=== PATIENT | male | born 1955 | race Caucasian/White ===

== ENCOUNTER 2019-12-14 10:18 | Outpatient (CLI) | payer BC, SELFPAY ==
[2019-12-14 11:36] LABS: Alanine Aminotransferase 70 U/L (4-50); Albumin Level 4.6 g/dL (3.5-5.1); Alkaline Phosphatase 62 U/L (38-126); Aspartate Amino Transferase 45 U/L (17-59); Bilirubin,Total 0.6 mg/dL (0.2-1.3); Blood Urea Nitrogen 13 mg/dL (9-20); Calcium 9.2 mg/dL (8.4-10.2); Carbon Dioxide 25 mmol/L (22-30); Chloride 106 mmol/L (98-107); Cholesterol 153 mg/dL (0-200); Estimated Glomerular Filt Rate > 60; Glucose 97 mg/dL (75-110); HDL Direct 28 mg/dL; Sodium 138 mmol/L (137-145); Triglycerides 102 mg/dL (<150)
[2019-12-14 11:48] LABS: LDL Cholesterol Direct 108 mg/dL
== END 2019-12-14 10:19 | disposition home or self-care (01) ==
LOC: ANHLAB 10:21
PROVIDERS: PCP Emergency Medicine; Visit Provider Emergency Medicine
DX: E78.5 Hyperlipidemia, unspecified (principal)
CPT/HCPCS: 36415; 80053; 80061

== ENCOUNTER 2020-01-02 06:40 | Emergency (ER) | payer BC, SELFPAY ==
--- NOTE | ~2020-01-02 | CT_ITS ---
EXAMINATION: CT abdomen pelvis w con DATE: 01/02/2020 09:05 INDICATION: Right flank pain TECHNIQUE: Computed tomography (CT) of the abdomen and pelvis was performed with 100 mL Omnipaque-350 intravenous contrast. Automated exposure control and iterative reconstruction technique were employe d. The dose-length product was 1358.03 mGy-cm. COMPARISON: 07/25/2014 FINDINGS: Lung bases are clear. Heart size is normal. Atherosclerotic coronary artery calcification. No pericar dial or pleural effusion. Diffuse hepatic steatosis with focal sparing along the gallbladder fossa. G allbladder, spleen, pancreas and bilateral adrenal glands are normal. Small region of cortical scarri ng at the upper pole of the right kidney. Bilateral renal cysts measuring up to 3.7 cm in the There i s mild colonic diverticulosis with a sigmoid predominance. There is no adjacent inflammatory change to suggest diverticulitis. No bowel obstruction. The appendix is not visualized. No pericecal inflamm atory change to suggest acute appendicitis. Bladder is normal. Prostatomegaly. No free intraperitonea l gas or fluid. No pathologically enlarged abdominal or pelvic lymphadenopathy. Postoperative changes of prior umbilical hernia repair. Chronic mild T12 compression fracture. IMPRESSION: 1. No acute intra-abdominal/pelvic process. 2. Diffuse hepatic steatosis. 3. Mild scattered diverticulosis. 4. Prostatomegaly. Reviewed, dictated and finalized at location A.
[2020-01-02 06:48] VITALS: BP 158/103; PULSE 71; RESP 20; TEMP 36.8; O2SAT 98
[2020-01-02 07:36] LABS: Basophils Absolute Auto 0.1 K/mm3 (0.0-0.1); Basophils Percent Auto 1.1 % (0.2-1.2); Eosinophils Absolute Auto 0.3 K/mm3 (0-0.3); Eosinophils Percent Auto 3.4 % (0-4.4); Hematocrit 41.2 % (42.0-52.0); Hemoglobin 14.7 g/dL (14.0-18.0); Immature Granulocyte Absolute 0.07 K/mm3 (0.00-0.031); Immature Granulocyte Percent A 0.9 % (0-0.5); Lymphocytes Absolute Auto 2.14 K/mm3 (0.9-3.2); Lymphocytes Percent Auto 27.1 % (18.3-44.2); Mean Corpuscular HGB Conc 35.7 g/dl (32-36); Mean Corpuscular Hemoglobin 30.9 pg (26-34); Mean Corpuscular Volume 86.6 fl (80-100); Mean Platelet Volume 9.3 fl (7.4-10.4); Monocytes Absolute Auto 0.5 K/mm3 (0.1-0.6); Monocytes Percent Auto 5.7 % (2.6-8.5); Neutrophils Absolute Auto 4.9 K/mm3 (1.3-6.7); Neutrophils Percent Auto 61.8 % (45.5-73.1); Platelet Count Result 213 k/mm3 (150-375); Red Blood Count 4.76 M/mm3 (4.6-6.20); Red Cell Distribution Width 13.2 % (11.5-14.5); White Blood Count 7.9 K/mm3 (4.5-10.0)
[2020-01-02 07:38] LABS: Add Urine Microscopic? NO; Appearance Urine Clear (Clear); Bilirubin Urine Negative (Negative); Blood Urine Negative (Negative); Color Urine Yellow (Yellow); Glucose Urine UA Negative (Negative); Ketones Urine Negative (Negative); Leukocyte Esterase Ur Negative LEU/UL (Negative); Nitrate Urine Negative (Negative); Protein Urine Negative (Negative); Specific Grav Ur 1.013 (1.001-1.035); Urobilinogen Urine Negative mg/dL (<2.0)
--- NOTE | 2020-01-02 07:44 | ED.ABDPAIN ---
HPI - Abdominal Pain General Chief Complaint: Abdominal Pain Stated Complaint: Extreme kidney pain Time Seen by Provider: 01/02/20 07:37 History of Present Illness HPI narrative: Patient presents to the ER for 3 days of right flank pain. Started 3 days ago in the morning without injury. Hurts beneath his posterior ribs. Worse with movement. Stops when he is at complete rest. He thought it might just be a pulled muscle. He called his doctor yesterday who said go to the ER and get a CAT scan. So he is here this morning. He says the pain is a 2 out of 10 and he does not want any pain medicine. He has had difficulty urinating for the last 3 or 4 months. He has difficulty starting the stream. And he urinates less than usual. He has not had any dysuria or hematuria. He does not have a history of prostate problems. He does not have hypertension but has been told that he has borderline diabetes. Past surgeries include pyloric stenosis repair, appendectomy, ventral hernia with graft, cervical laminectomy, cervical fusion. 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 MD elicited complaint: flank pain Pertinent past history: none Onset (ago): day(s) Pain Consistency: intermittent Location: R flank Severity: mild Related Data Allergies Allergy/AdvReac Type Severity Reaction Status Date / Time No Known Allergies Allergy Verified 01/02/20 06:51 Review of Systems Review of Systems: Narrative: CONSTITUTIONAL: Denies fever, chills, or sweats. EYES: Denies visual changes, redness, or discharge. ENT: Denies rhinorrhea, congestion, sore throat, or otalgia. CARDIOVASCULAR: Denies chest pain, palpitations, or edema. RESPIRATORY: Denies cough or dyspnea. GASTROINTESTINAL: Denies abdominal pain, nausea, vomiting, or diarrhea. GENITOURINARY: Denies dysuria or hematuria. SKIN: Denies rash or itching. MUSCULOSKELETAL: Denies back pain, joint pain, or myalgia. NEUROLOGIC: Denies headache, numbness, or weakness. PSYCHIATRIC: Denies anxiety or depression. [facility] Surgical History Surgical History History of appendectomy History of cervical spinal arthrodesis History of repair of pyloric stenosis History of ventral hernia repair Social History Social History (Updated 01/02/20 @ 07:47 by Mar Matthews MD) Smoking status: Never smoker Alcohol intake: never Substance use: never Exam Narrative: Exam Narrative: GENERAL: Well-appearing, well-nourished, and in no acute distress. HEAD: Normocephalic, atraumatic. EYES: PERRLA and EOMI. ENT: Nares clear, no rhinorrhea or epistaxis. Mucous membranes moist. NECK: Supple. CHEST: Clear to auscultation. No respiratory distress. Gynecomastia. HEART: Regular rate and rhythm. No murmur heard. Normal peripheral pulses. ABDOMEN: Soft, nontender, nondistended, normal active bowel sounds. EXTREMITIES: Normal range of motion. No edema. SKIN: Warm, dry, no rash. NEURO: No focal deficits. Alert and oriented x3. PSYCH: Normal mood and affect. Back: Tenderness beneath the right posterior ribs. No point tenderness on the spine. Course Reevaluation(s) Reevaluation #1: Went in to discuss the findings of the CAT scan with the patient. Summarized it as fatty liver, for which he needs a low-fat diet and to get his cholesterol checked. No kidney stone. Enlarged prostate for which he needs a urologist. I will also give him some muscle relaxers and pain pills for the probable muscle strain. Date: 01/02/20 Time: 09:30 Vital Signs Vital signs: Vital Signs Temperature 98.2 F 01/02/20 06:48 Pulse Rate 71 01/02/20 06:48 Respiratory Rate 01/02/20 06:48 Blood Pressure 158/103 H 01/02/20 06:48 Pulse Oximetry 98 01/02/20 06:48 Temperature 98.2 F 01/02/20 06:48 Pulse Rate 71 01/02/20 06:48 Respiratory Rate 20 01/02/20 06:48 Blood Pressure 158/103 H 01/02/20 06:48 Pulse Oximetry 98
[2020-01-02 07:47] LABS: Blood Urea Nitrogen 15 mg/dL (9-20); Calcium 9.2 mg/dL (8.4-10.2); Carbon Dioxide 23 mmol/L (22-30); Chloride 107 mmol/L (98-107); Estimated CRCL calculation 105 ml/min; Estimated Glomerular Filt Rate > 60; Glucose 108 mg/dL (75-110); Potassium 4.2 mmol/L (3.4-5.0); Sodium 138 mmol/L (137-145)
== END 2020-01-02 09:44 | disposition home or self-care (01) ==
PROVIDERS: Emergency Provider Emergency Medicine; PCP Emergency Medicine
DX: K76.0 Fatty (change of) liver, not elsewhere classified (principal); K57.90 Diverticulosis of intestine, part unspecified, without perforation or abscess without bleeding; N40.0 Benign prostatic hyperplasia without lower urinary tract symptoms; S39.011A Strain of muscle, fascia and tendon of abdomen, initial encounter; R73.03 Prediabetes; Z98.1 Arthrodesis status; X58.XXXA Exposure to other specified factors, initial encounter
CPT/HCPCS: 36415; 74177; 80048; 81003; 85025; 99284; Q9967

== ENCOUNTER 2020-02-06 22:25 | Emergency (ER) | payer BC, SELFPAY ==
--- NOTE | ~2020-02-06 | XR_ITS ---
EXAMINATION: XR chest 2V EXAM DATE: 02/06/2020 23:27 INDICATION: Midline chest pain. TECHNIQUE: Frontal and lateral projections of the chest obtained and reviewed. There is no prior gypsy dy for comparison. FINDINGS: The lungs are clear. There are no pleural effusions. The cardiomediastinal silhouette is within normal limits. There is no pneumothorax suspected. The bones and soft tissues are unremarkab le. Lower cervical fusion. IMPRESSION: No acute cardiopulmonary findings. Reviewed, dictated and finalized at location A.
[2020-02-06 22:29] VITALS: BP 176/98; PULSE 61; RESP 18; TEMP 36.6; O2SAT 98
--- NOTE | 2020-02-06 22:40 | ECG_ITS ---
Measurements Intervals [place] Rate: 72 P: 46 MT: 156 QRS: 10 QRSD: 90 T: 52 QT: 362 QTc: 398 Interpretive Statements SINUS RHYTHM WITH SINUS ARRHYTHMIA ATRIAL PREMATURE COMPLEX AND FREQUENT VENTRICULAR PREMATURE COMPLEXES BASELINE WANDER- II, III ABNORMAL ECG Electronically Signed On 02-07-2020 7:16:42 CDT by Earl Eckert D.O.
--- NOTE | 2020-02-06 22:43 | ED.CHESTPAIN ---
HPI - Chest Pain General Chief Complaint: Chest Pain Stated Complaint: chest pain History of Present Illness HPI narrative: He had a few very breif sharp, shooting pains in his chest this evening. He has also noted increasing palpiations recently. During these he feels like his heart will slow down, speed up, and pause. He has not seen anybody about this. Related Data Home Medications Medication Instructions Recorded Confirmed albuterol sulfate 90 mcg/actuation 2 puff INHALATION Q4-6H PRN gm 12/18/19 aerosol inhaler meloxicam 02/06/20 methocarbamol mg 02/06/20 Allergies Allergy/AdvReac Type Severity Reaction Status Date / Time No Known Allergies Allergy Unverified 11/25/17 08:38 Review of Systems Review of Systems: All systems reviewed & are unremarkable except as noted in HPI and below Constitutional: Constitutional: Denies fever(s) Cardiovascular: Cardiovascular: Reports chest pain and Denies radiating jaw, neck or arm pain Respiratory: Respiratory: Denies dyspnea Gastrointestinal: Gastrointestinal: Denies nausea Musculoskeletal: Musculoskeletal: Denies back pain [facility]LY [facility] Past Medical History Medical History Seborrheic keratosis Family History Family History Father Family history of lung cancer, Onset Age: 61 Family history of heart disease in male family member before age 55, Onset Age: 61 Mother Family history of malignant neoplasm of breast in first degree relative, Onset Age: 66 Social History Social History Smoking status: Never smoker Second hand tobacco smoke exposure: No Gender identity (if verbalized by the patient): Male Exam Const: General: healthy appearing, no acute distress and alert Orientation/consciousness: patient oriented x3 HENMT: Head: normal to inspection Chest: Chest palpation & inspection: normal inspection of the chest and no tenderness Resp: Effort & Inspection: normal respiratory effort Auscultation: clear to auscultation bilaterally, no rales, no rhonchi and no wheezes Cardio: Jugular venous distension: no JVD Rate: regular rate Rhythm: regular rhythm Heart sounds: no murmurs GI: Inspection: non-distended GI Palp: Yes Soft to palpation and No Tenderness to palpation present (GI) Skin: General skin exam: normal color Neuro: General: patient oriented x3 and moves all extremities Speech: normal speech Extrem: General: no edema Psych: Appearance: well kempt Affect: normal affect Course Vital Signs Vital signs: Vital Signs Temperature 36.6 C 02/06/20 22:29 Pulse Rate 61 02/06/20 22:29 Respiratory Rate 18 02/06/20 22:29 Blood Pressure 176/98 H 02/06/20 22:29 Pulse Oximetry 98 02/06/20 22:29 Temperature 36.6 C 02/06/20 22:29 Pulse Rate 59 L 02/07/20 02:42 Respiratory Rate 16 02/07/20 02:42 Blood Pressure 140/83 02/07/20 02:42 Pulse Oximetry 97 02/07/20 02:42 MDM - Chest Pain MDM Narrative Medical decision making narrative: Chest pain is atypical. Occasional PVC's on EKG and telemetry. Troponin negative x2. Medical Records Data Attestation: I reviewed the patient's medical records. Lab Data Attestation: I reviewed the patient's lab results. Result diagrams: 02/06/20 22:46 02/06/20 22:46 Labs: Lab Results 02/06/20 02/06/20 02/06/20 Range/Units 22:46 22:46 22:46 WBC 10.3 H (4.5-10.0) K/mm3 RBC 4.81 (4.6-6.20) M/mm3 Hgb 14.9 (14.0-18.0) g/dL Hct 42.3 (42.0-52.0) % MCV 87.9 (80-100) fl MCH 31.0 (26-34) pg MCHC 35.2 (32-36) g/dl RDW 13.5 (11.5-14.5) % Plt Count 230 (150-375) k/mm3 MPV 9.5 (7.4-10.4) fl Immature Gran % (Auto) 0.3 (0-0.5) % Neut % (Auto) 52.5 (45.5-73.1) % Lymph % (Auto) 36.1 (18.3-44.2) %
[2020-02-06 22:53] LABS: Basophils Absolute Auto 0.1 K/mm3 (0.0-0.1); Basophils Percent Auto 0.9 % (0.2-1.2); Eosinophils Absolute Auto 0.3 K/mm3 (0-0.3); Eosinophils Percent Auto 3.2 % (0-4.4); Hematocrit 42.3 % (42.0-52.0); Hemoglobin 14.9 g/dL (14.0-18.0); Immature Granulocyte Absolute 0.03 K/mm3 (0.00-0.031); Immature Granulocyte Percent A 0.3 % (0-0.5); Lymphocytes Absolute Auto 3.71 K/mm3 (0.9-3.2); Lymphocytes Percent Auto 36.1 % (18.3-44.2); Mean Corpuscular HGB Conc 35.2 g/dl (32-36); Mean Corpuscular Volume 87.9 fl (80-100); Mean Platelet Volume 9.5 fl (7.4-10.4); Monocytes Absolute Auto 0.7 K/mm3 (0.1-0.6); Neutrophils Absolute Auto 5.4 K/mm3 (1.3-6.7); Neutrophils Percent Auto 52.5 % (45.5-73.1); Platelet Count Result 230 k/mm3 (150-375); Red Blood Count 4.81 M/mm3 (4.6-6.20); Red Cell Distribution Width 13.5 % (11.5-14.5); White Blood Count 10.3 K/mm3 (4.5-10.0)
[2020-02-06 23:05] LABS: INR 0.9
[2020-02-06 23:06] LABS: Partial Thromboplastin Time 30.9 SECONDS (22.3-36.8)
[2020-02-06 23:11] LABS: Anion Gap 11 mmol/L (8-16); Blood Urea Nitrogen 19 mg/dL (9-20); Calcium 9.4 mg/dL (8.4-10.2); Carbon Dioxide 24 mmol/L (22-30); Chloride 106 mmol/L (98-107); Estimated CRCL calculation 84 ml/min; Estimated Glomerular Filt Rate > 60; Glucose 104 mg/dL (75-110); Potassium 3.8 mmol/L (3.4-5.0); Sodium 141 mmol/L (137-145)
[2020-02-06 23:23] LABS: Troponin I < 0.012 ng/mL (0.000-0.034)
[2020-02-07 00:30] VITALS: BP 148/87; PULSE 57; RESP 18; O2SAT 97
[2020-02-07 01:56] VITALS: BP 134/70; PULSE 59; RESP 14; O2SAT 97
[2020-02-07 02:17] LABS: Troponin I < 0.012 ng/mL (0.000-0.034)
[2020-02-07 02:42] VITALS: BP 140/83; PULSE 59; RESP 16; O2SAT 97
== END 2020-02-07 02:49 | disposition home or self-care (01) ==
PROVIDERS: Emergency Provider Emergency Medicine; PCP Emergency Medicine
DX: I49.3 Ventricular premature depolarization (principal); R07.9 Chest pain, unspecified; I49.1 Atrial premature depolarization
CPT/HCPCS: 36415; 71046; 80048; 84484; 85025; 85610; 85730; 93005; 99284

== ENCOUNTER 2020-07-12 09:45 | Outpatient (CLI) | payer BC, SELFPAY ==
[2020-07-12 10:23] LABS: Alanine Aminotransferase 59 U/L (4-50); Albumin Level 4.6 g/dL (3.5-5.1); Alkaline Phosphatase 69 U/L (38-126); Anion Gap 9 mmol/L (8-16); Aspartate Amino Transferase 41 U/L (17-59); Bilirubin,Total 0.7 mg/dL (0.2-1.3); Blood Urea Nitrogen 15 mg/dL (9-20); Calcium 9.6 mg/dL (8.4-10.2); Carbon Dioxide 26 mmol/L (22-30); Chloride 105 mmol/L (98-107); Cholesterol 161 mg/dL (0-200); Estimated Glomerular Filt Rate > 60; Glucose 92 mg/dL (75-110); HDL Direct 33 mg/dL; Potassium 4.5 mmol/L (3.4-5.0); Sodium 140 mmol/L (137-145); Triglycerides 143 mg/dL (<150)
[2020-07-12 10:34] LABS: LDL Cholesterol Direct 112 mg/dL
[2020-07-12 10:54] LABS: Prostate Specific Antigen 2.2 ng/mL (< OR = 4.0)
== END 2020-07-12 09:46 | disposition home or self-care (01) ==
PROVIDERS: PCP Emergency Medicine; Visit Provider Emergency Medicine
DX: E78.5 Hyperlipidemia, unspecified (principal); Z12.5 Encounter for screening for malignant neoplasm of prostate
CPT/HCPCS: 36415; 80053; 80061; 84153; G0103

== ENCOUNTER 2021-03-28 13:27 | Outpatient (CLI) | payer BC, SELFPAY ==
--- NOTE | ~2021-03-28 | XR_ITS ---
XR wrist LT min 3V DATE: 03/28/2021 13:50 INDICATION: Left wrist pain. Ultrasound would fracture. TECHNIQUE: 4 views COMPARISON: 12/14/2018 left wrist FINDINGS: Old ununited fracture deformity of the ulnar styloid process. Degenerative change at the radial ulnar and radiocarpal joints, triscaphe and first carpometacarpal j oints, first metacarpophalangeal and first interphalangeal joints, consistent with polyarticular oste oarthritis. No recent fracture or dislocation, periosteal reaction or bone destruction. IMPRESSION: Polyarticular osteoarthritis Old ununited fracture deformity of the ulnar styloid process Reviewed, dictated and finalized at location B.
--- NOTE | ~2021-03-28 | XR_ITS ---
XR chest 2V DATE: 03/28/2021 13:50 INDICATION: Shortness of breath. TECHNIQUE: PA and lateral views COMPARISON: 02/06/2020 PA and lateral chest FINDINGS: Normal heart size. There is aortic calcification and mild unfolding. No hilar or mediastina l enlargement. No pulmonary infiltrate or consolidation, pleural effusion or pulmonary vascular congestion or pneumo thorax is detected. Status post lower anterior cervical spine surgical fusion. There is chronic mild anterior wedge compression fracture deformity of a thoracolumbar vertebra. Mild degenerative spurring of the thoracic spine. Diffuse osteopenia. IMPRESSION: No active cardiopulmonary disease Reviewed, dictated and finalized at location B.
== END 2021-03-28 13:28 | disposition home or self-care (01) ==
PROVIDERS: PCP Emergency Medicine; Visit Provider Emergency Medicine
DX: R06.02 Shortness of breath (principal); S52.612K Displaced fracture of left ulna styloid process, subsequent encounter for closed fracture with nonunion; M19.032 Primary osteoarthritis, left wrist; Z98.1 Arthrodesis status; M85.88 Other specified disorders of bone density and structure, other site
CPT/HCPCS: 71046; 73110

== ENCOUNTER 2021-04-05 13:32 | Outpatient (CLI) | payer BC, SELFPAY ==
--- NOTE | ~2021-04-05 | MR_ITS ---
EXAMINATION: MR cervical spine wo con DATE: 04/05/2021 14:38 INDICATION: Cervical spinal stenosis TECHNIQUE: Magnetic resonance imaging (MRI) of the cervical spine was performed without intravenous c ontrast. Sequences included sagittal T2-weighted FSE, sagittal T2-weighted FS FSE, sagittal T1-weight ed FSE, axial MERGE and axial T2-weighted FSE. COMPARISON: 11/19/2016 FINDINGS: Bone alignment is normal. C5-C7 anterior spinal fusion with discectomies, interbody bone grafting and anterior plate-screw fixation. Unfused vertebral body and disc heights are normal. Bone marrow sign al intensity is normal. Cord signal intensity is normal. Cervical soft tissues are unremarkable. The following disc levels are specifically discussed: C2-C3: The disc does not extend beyond the endplate margin. There is no uncovertebral joint osteoarth ritis. There is moderate right and severe left facet joint osteoarthritis. There is mild left neural foraminal stenosis. There is no central canal stenosis. C3-C4: The disc is minimally bulging. There is no uncovertebral joint osteoarthritis. There is mild r ight and moderate left facet joint osteoarthritis. There is minimal bilateral neural foraminal stenos is. There is no central canal stenosis. C4-C5: Disc is mildly bulging. There is mild right and moderate left uncovertebral joint osteoarthrit is. There is moderate right and severe left facet joint osteoarthritis. There is mild right and moder ate left neural foraminal stenosis. There is no central canal stenosis. C5-C6: Anterior spinal effusion with moderate hypertrophic change at the fused right uncovertebral pushpa int. There is mild left facet joint osteoarthritis. There is mild left neural foraminal stenosis. The re is no central canal stenosis. C6-C7: Anterior spinal fusion. There is mild bilateral facet joint osteoarthritis. There is no neural foraminal stenosis. There is no central canal stenosis. C7-T1: Disc is minimally bulging. There is mild left uncovertebral joint osteoarthritis. There is mil d right and moderate left facet joint osteoarthritis. There is mild left neural foraminal stenosis. T here is no central canal stenosis. IMPRESSION: 1. C5-C7 anterior spinal fusion with plate and screw fixation. 2. No interval change in mild cervical spondylosis. Reviewed, dictated and finalized at location A.
== END 2021-04-05 13:33 | disposition home or self-care (01) ==
LOC: ANHIMG 13:36
PROVIDERS: PCP Emergency Medicine; Visit Provider Emergency Medicine
DX: M48.02 Spinal stenosis, cervical region (principal); Z98.1 Arthrodesis status; M47.892 Other spondylosis, cervical region
CPT/HCPCS: 72141

== ENCOUNTER → 2021-04-24 15:55 | Outpatient (CLI) | payer BC, SELFPAY ==
--- NOTE | ~2021-04-24 | XR_ITS ---
EXAMINATION: XR sacroiliac joints min 3V DATE: 04/24/2021 16:20 INDICATION: Sacroiliac joint pain. TECHNIQUE: 3 views of the sacroiliac joints were obtained. COMPARISON: CT abdomen and pelvis 01/02/2020 FINDINGS: Bone alignment is normal. No fracture. There is mild osteoarthritis of the sacroiliac joint s. IMPRESSION: 1. Mild osteoarthritis of the sacroiliac joints. No evidence of inflammatory arthropathy. Reviewed, dictated and finalized at location A. IMPRESSION: 1. Mild osteoarthritis of the sacroiliac joints. No evidence of inflammatory ar thropathy.
--- NOTE | ~2021-04-24 | XR_ITS ---
EXAMINATION: XR lumbar spine 2-3V DATE: 04/24/2021 16:21 INDICATION: Other low back pain. TECHNIQUE: 3 views of lumbar spine were obtained. COMPARISON: CT abdomen and pelvis 01/02/2020 FINDINGS: Bone alignment is normal. There is mild chronic anterior wedging of T12 and L1 vertebral antwan dies. There are endplate osteophytes at most levels. Intervertebral disc heights are normal. There is multilevel facet joint osteoarthritis, severe bilaterally at L4-L5. IMPRESSION: 1. Mild lumbar spondylosis. Reviewed, dictated and finalized at location A. IMPRESSION: 1. Mild lumbar spondylosis.
== END ==
PROVIDERS: Visit Provider Nurse Practitioner Family
DX: M53.3 Sacrococcygeal disorders, not elsewhere classified (principal); M47.816 Spondylosis without myelopathy or radiculopathy, lumbar region
CPT/HCPCS: 72100; 72202

== ENCOUNTER 2021-08-16 10:46 | Outpatient (CLI) | payer BC, SELFPAY ==
[2021-08-16 12:05] LABS: Alanine Aminotransferase 64 U/L (4-50); Albumin Level 4.7 g/dL (3.5-5.1); Alkaline Phosphatase 69 U/L (38-126); Anion Gap 9 mmol/L (8-16); Aspartate Amino Transferase 44 U/L (17-59); Bilirubin,Total 0.7 mg/dL (0.2-1.3); Blood Urea Nitrogen 12 mg/dL (9-20); Calcium 9.7 mg/dL (8.4-10.2); Carbon Dioxide 24 mmol/L (22-30); Chloride 107 mmol/L (98-107); Cholesterol 160 mg/dL (0-200); Estimated Glomerular Filt Rate > 60; Glucose 86 mg/dL (65-110); HDL Direct 32 mg/dL; Potassium 4.1 mmol/L (3.4-5.0); Sodium 140 mmol/L (137-145); Triglycerides 97 mg/dL (<150)
[2021-08-16 12:15] LABS: LDL Cholesterol Direct 113 mg/dL
[2021-08-16 12:31] LABS: Prostate Specific Antigen 1.9 ng/mL (< OR = 4.0)
== END 2021-08-16 10:47 | disposition home or self-care (01) ==
LOC: ANHLAB 10:48
PROVIDERS: PCP Emergency Medicine; Visit Provider Emergency Medicine
DX: Z13.6 Encounter for screening for cardiovascular disorders (principal); Z12.5 Encounter for screening for malignant neoplasm of prostate
CPT/HCPCS: 36415; 80053; 80061; 84153; G0103

== ENCOUNTER 2022-11-07 08:39 | Outpatient (CLI) | payer BC, SELFPAY ==
[2022-11-07 08:59] LABS: Hematocrit 42.3 % (42.0-52.0); Hemoglobin 14.8 g/dL (14.0-18.0); Mean Corpuscular Hemoglobin 30.6 pg (26-34); Mean Corpuscular Volume 87.6 fl (80-100); Mean Platelet Volume 9.2 fl (7.4-10.4); Platelet Count Result 221 k/mm3 (150-375); Red Blood Count 4.83 M/mm3 (4.6-6.20); Red Cell Distribution Width 13.6 % (11.5-14.5); White Blood Count 7.2 K/mm3 (4.5-10.0)
[2022-11-07 09:04] LABS: Appearance Urine Clear (Clear); Bacteria Urine None Seen /hpf; Bilirubin Urine Negative (Negative); Blood Urine Negative (Negative); Color Urine Yellow (Yellow); Glucose Urine UA Negative (Negative); Ketones Urine Negative (Negative); Leukocyte Esterase Ur Negative LEU/UL (Negative); Nitrate Urine Negative (Negative); Non Pathogenic Casts 0-2; Protein Urine Trace mg/dL (Negative); RBC Urine 0-2 /hpf (0-2); Specific Grav Ur 1.012 (1.001-1.035); Squamous Epithelial Cell Urine None seen /hpf (Few); Urobilinogen Urine 0.2 mg/dL (<2.0); WBC Urine 0-5 /hpf
[2022-11-07 09:06] LABS: Add Urine Microscopic? YES
[2022-11-07 09:13] LABS: Alanine Aminotransferase 58 U/L (6-50); Albumin Level 4.5 g/dL (3.5-5.1); Alkaline Phosphatase 73 U/L (38-126); Anion Gap 7 mmol/L (8-16); Aspartate Amino Transferase 40 U/L (17-59); Bilirubin,Total 0.6 mg/dL (0.2-1.3); Blood Urea Nitrogen 11 mg/dL (9-20); Calcium 8.9 mg/dL (8.4-10.2); Carbon Dioxide 24 mmol/L (22-30); Chloride 108 mmol/L (98-107); Cholesterol 152 mg/dL (0-200); Estimated Glomerular Filt Rate > 60; Glucose 103 mg/dL (65-110); HDL Direct 34 mg/dL; Potassium 4.1 mmol/L (3.4-5.0); Sodium 139 mmol/L (137-145); Triglycerides 94 mg/dL (<150)
[2022-11-07 09:24] LABS: LDL Cholesterol Direct 102 mg/dL
[2022-11-07 09:42] LABS: Prostate Specific Antigen 2.6 ng/mL (< OR = 4.0)
[2022-11-12 21:49] LABS: Vitamin D 1,25 (OH)2 Total 33 pg/mL (18-72); Vitamin D2 1,25 (OH)2 <8 pg/mL; Vitamin D3 1,25 (OH)2 33 pg/mL
== END 2022-11-07 08:40 | disposition home or self-care (01) ==
PROVIDERS: PCP Emergency Medicine; Visit Provider Emergency Medicine
DX: E78.5 Hyperlipidemia, unspecified (principal); E03.9 Hypothyroidism, unspecified; R53.83 Other fatigue; Z12.5 Encounter for screening for malignant neoplasm of prostate; N30.90 Cystitis, unspecified without hematuria; E55.9 Vitamin D deficiency, unspecified
CPT/HCPCS: 36415; 80053; 80061; 81001; 82652; 84153; 84443; 85027; G0103

== ENCOUNTER 2023-01-04 01:53 | Day surgery (SDC) | payer BC, SELFPAY ==
[2022-12-23 13:52] VITALS: BMI 37.8
[2023-01-04 09:46] VITALS: BP 174/96; PULSE 68; RESP 18; TEMP 37.2; O2SAT 98; BMI 37.2
[2023-01-04] MEDS: LACTATED RINGERS 1,000 ML 150 ML IV CONT (10:05)
--- NOTE | 2023-01-04 10:26 | PM.HPGS ---
History of Present Illness History of Present Illness Consent: Risks, benefits, and alternatives have been discussed and questions answered. Patient agrees to proceed with procedure. Chief complaint: neoplasm screening Narrative: Tyshawn Syed is a 67 year old male Presents for screening colonoscopy. Patient's current weight appetite and bowel movements are normal. Patient denies abdominal pain. He has had no bleeding. Past medical history is significant for adenomatous colon polyp removed in 2007. Most recent colonoscopy 2018 revealed no evidence of polyps at that time. Patient's current bowel habits are normally. presents today for neoplasia screening. Review of Systems Review of Systems: Review of systems noncontributory. [facility] Past Medical History Medical History Seborrheic keratosis Surgical History Surgical History History of appendectomy History of cervical spinal arthrodesis History of repair of pyloric stenosis History of ventral hernia repair S/P cervical spinal fusion Family History Family History Father Family history of lung cancer, Onset Age: 61 Family history of heart disease in male family member before age 55, Onset Age: 61 Mother Family history of malignant neoplasm of breast in first degree relative, Onset Age: 66 Social History Social History Smoking status: Never smoker Second hand tobacco smoke exposure: No Alcohol intake: never Substance use: never Substance use type: does not use Living arrangements: alone Gender identity (if verbalized by the patient): Male Spiritual care concerns: No Meds Home Medications and Allergies Home Medications Medication Instructions Recorded Confirmed Type tamsulosin 0.4 mg capsule See Rx Instructions .Route 10/02/22 01/04/23 Rx .COMPLEX #90 caps albuterol sulfate 90 mcg/actuation 2 puff inhalation Q4-6H PRN 11/03/22 01/04/23 Rx aerosol inhaler (ProAir HFA) shortness of breath or wheezing #8.5 grams gabapentin 300 mg capsule 300 mg PO DAILY 11/03/22 01/04/23 History Allergies Allergy/AdvReac Type Severity Reaction Status Date / Time No Known Allergies Allergy Verified 01/04/23 09:45 Vital Signs Vital Signs - 24 hr 01/04/23 09:46 Temperature 98.9 F Pulse Rate 68 Respiratory Rate 18 Blood Pressure 174/96 H Pulse Oximetry 98 Oxygen Delivery Room Air Exam Narrative: Physical exam reveals patient to be alert. Vital signs stable. HEENT exam is unremarkable. Patient is anicteric. Lungs are clear to auscultation and percussion. Heart is without murmur or extra sounds. Abdomen bowel sounds are present soft nontender with no organomegaly. Digital external rectal exam is normal. Assessment and Plan Assessment and plan (1) Colon cancer screening: Code(s): Z12.11 - Encounter for screening for malignant neoplasm of colon Status: Acute Assessment and Plan: Patient presents today for neoplasia screening colonoscopy. Further recommendations will be given after endoscopy.
[2023-01-04 11:45] VITALS: BP 141/87; PULSE 66; RESP 20; O2SAT 96
[2023-01-04 11:55] VITALS: BP 127/85; PULSE 50; RESP 20; O2SAT 99
[2023-01-04 12:05] VITALS: BP 152/94; PULSE 50; RESP 20; O2SAT 99
== END 2023-01-04 12:19 | disposition home or self-care (01) ==
PROVIDERS: PCP Emergency Medicine; Visit Provider Internal Medicine Gastroenterology
PROC: 0DJD8ZZ Inspection of Lower Intestinal Tract, Via Natural or Artificial Opening Endoscopic (ICD-10-PCS; CPT 45378; principal; 2023-01-04 10:45)
DX: Z12.11 Encounter for screening for malignant neoplasm of colon (principal); K64.8 Other hemorrhoids; Z86.010 Personal history of colon polyps; Z98.1 Arthrodesis status; Z79.51 Long term (current) use of inhaled steroids
CPT/HCPCS: 45378; J2704; J7120

== ENCOUNTER 2023-08-28 11:54 | Emergency (ER) | payer BC, SELFPAY ==
--- NOTE | ~2023-08-28 | XR_ITS ---
EXAMINATION: XR chest 2V DATE: 08/28/2023 12:24 INDICATION: Right chest pain. TECHNIQUE: Frontal and lateral views of the chest were obtained. COMPARISON: Chest 2 views 03/28/2021 FINDINGS: A calcified right lung nodule and calcified right hilar lymph nodes are consistent with old granulomatous disease. No pleural effusion or pneumothorax. The heart size is normal. There are matias ges of anterior fusion procedure in cervical spine. IMPRESSION: 1. No acute cardiopulmonary disease. Reviewed, dictated and finalized at location A. [employer]
--- NOTE | 2023-08-28 11:55 | ECG_ITS ---
Measurements Intervals [place] Rate: 59 P: 30 MN: 151 QRS: 21 QRSD: 89 T: 57 QT: 361 QTc: 360 Interpretive Statements SINUS BRADYCARDIA BORDERLINE ECG COMPARED TO ECG 02/06/2020 22:31:21 SINUS BRADYCARDIA NOW PRESENT Electronically Signed On 08-28-2023 16:54:01 [employer]OADCAST TRANSMITTER OPERATOR by Earl Eckert D.O.
[2023-08-28 11:57] VITALS: BP 151/102; PULSE 61; RESP 20; TEMP 36.5; O2SAT 98
[2023-08-28 12:12] VITALS: PULSE 58; O2SAT 98
[2023-08-28 12:18] LABS: Basophils Absolute Auto 0.1 K/mm3 (0.0-0.1); Basophils Percent Auto 0.9 % (0.2-1.2); Eosinophils Absolute Auto 0.2 K/mm3 (0-0.3); Eosinophils Percent Auto 2.3 % (0-4.4); Hematocrit 43.7 % (42.0-52.0); Immature Granulocyte Absolute 0.02 K/mm3 (0.00-0.031); Immature Granulocyte Percent A 0.2 % (0-0.5); Lymphocytes Absolute Auto 2.39 K/mm3 (0.9-3.2); Lymphocytes Percent Auto 27.2 % (18.3-44.2); Mean Corpuscular HGB Conc 34.3 g/dl (32-36); Mean Corpuscular Hemoglobin 29.9 pg (26-34); Mean Corpuscular Volume 87.2 fl (80-100); Mean Platelet Volume 9.2 fl (7.4-10.4); Monocytes Absolute Auto 0.7 K/mm3 (0.1-0.6); Monocytes Percent Auto 7.4 % (2.6-8.5); Neutrophils Absolute Auto 5.5 K/mm3 (1.3-6.7); Platelet Count Result 231 k/mm3 (150-375); Red Blood Count 5.01 M/mm3 (4.6-6.20); Red Cell Distribution Width 13.8 % (11.5-14.5); White Blood Count 8.8 K/mm3 (4.5-10.0)
[2023-08-28 12:29] LABS: INR 0.9; Prothrombin Time 12.9 Seconds (11.1-14.7)
[2023-08-28 12:30] LABS: Partial Thromboplastin Time 35.2 SECONDS (22.3-36.8)
[2023-08-28 12:31] LABS: Alanine Aminotransferase 62 U/L (6-50); Albumin Level 4.8 g/dL (3.5-5.1); Alkaline Phosphatase 71 U/L (38-126); Anion Gap 11 mmol/L (8-16); Aspartate Amino Transferase 52 U/L (17-59); Bilirubin,Total 0.7 mg/dL (0.2-1.3); Blood Urea Nitrogen 14 mg/dL (9-20); Calcium 9.8 mg/dL (8.4-10.2); Carbon Dioxide 22 mmol/L (22-30); Chloride 107 mmol/L (98-107); Estimated CRCL calculation 89 ml/min; Estimated Glomerular Filt Rate > 60; Glucose 90 mg/dL (65-110); Lipase 121 U/L (23-300); Potassium 3.9 mmol/L (3.4-5.0); Sodium 140 mmol/L (137-145)
[2023-08-28 12:43] LABS: Troponin I < 0.012 ng/mL (0.000-0.034)
--- NOTE | 2023-08-28 12:45 | ED.CHESTPAIN ---
HPI - Chest Pain General Chief Complaint: Chest Pain Stated Complaint: Chest pain Time Seen by Provider: 08/28/23 12:10 History of Present Illness HPI narrative: Patient is a 68-year-old male with a history of hypertension presenting with chest pain. Patient states that he developed some central chest pain yesterday while at work. States that it was pressure-like. He felt generally weak with some shortness of breath and lightheadedness. States that he went home and rested and felt okay. He woke up this morning and again felt lightheaded and had some exertional shortness of breath. States that he had a little bit of chest pressure again but this has resolved. He denies fevers, sore throat, nasal congestion, cough. No abdominal pain, nausea vomiting or diarrhea. He denies leg swelling or orthopnea. Related Data Allergies Allergy/AdvReac Type Severity Reaction Status Date / Time No Known Allergies Allergy Verified 08/31/23 13:19 Review of Systems Review of Systems: All systems reviewed & are unremarkable except as noted in HPI and below PMFSH Past Medical History Medical History Chest pain Seborrheic keratosis Surgical History Surgical History History of appendectomy History of cervical spinal arthrodesis History of repair of pyloric stenosis History of ventral hernia repair S/P cervical spinal fusion Family History Family History Father Family history of lung cancer, Onset Age: 61 Family history of heart disease in male family member before age 55, Onset Age: 61 Mother Family history of malignant neoplasm of breast in first degree relative, Onset Age: 66 Social History Social History Smoking status: Never smoker Second hand tobacco smoke exposure: No Alcohol intake: never Substance use: never Substance use type: does not use Do You Feel Safe in your Home?: Yes Lack of Transportation: No Lack of Food: Never True Current Housing: I Have Housing Concerned About Future Housing: No Difficulty Paying Gas/Electric Bills: No Difficulty Paying for Meds: No Currently Unemployed: No Education: Associate Degree Difficulty w/ Childcare or Family Care: No Living arrangements: alone Gender identity (if verbalized by the patient): Male Spiritual care concerns: No Exam Narrative: GENERAL: Well-appearing, well-nourished, and in no acute distress. HEAD: Normocephalic, atraumatic. EYES: PERRLA and EOMI. ENT: Mucous membranes moist. NECK: Supple. CHEST: Clear to auscultation. No respiratory distress. HEART: Bradycardic, regular rhythm ABDOMEN: Soft, nontender, nondistended EXTREMITIES: Normal range of motion. No edema. SKIN: Warm, dry, no rash. NEURO: No focal deficits. Alert and oriented x3. PSYCH: Normal mood and affect. Course Vital Signs Vital signs: Vital Signs Temperature 97.7 F 08/28/23 11:57 Pulse Rate 61 08/28/23 11:57 Respiratory Rate 20 08/28/23 11:57 Blood Pressure 151/102 H 08/28/23 11:57 Pulse Oximetry 98 08/28/23 11:57 Oxygen Delivery Room Air 08/28/23 11:57 Temperature 97.7 F 08/28/23 11:57 Pulse Rate 60 08/28/23 16:47 Respiratory Rate 18 08/28/23 16:47 Blood Pressure 129/73 08/28/23 16:47 Pulse Oximetry 97 08/28/23 16:47 Oxygen Delivery Room Air 08/28/23 12:12 MDM - Chest Pain MDM Narrative Medical decision making narrative: 68-year-old male presenting with generalized weakness, lightheadedness, intermittent chest pain for approximately 1 day. Vitals are stable. Patient is well appearing, acute distress. Exam unremarkable. EKG per my interpretation shows sinus bradycardia, no acute ischemic changes. Blood work is unremarkable. Troponin is undet
[2023-08-28] MEDS: ASPIRIN 81 MG CHEWABLE TABLET 324 MG PO (12:56)
[2023-08-28 12:57] VITALS: BP 161/74; PULSE 66; RESP 18; O2SAT 97
[2023-08-28] MEDS: SODIUM CHLORIDE 0.9% IV 1,000 ML 999 ML IV CONT (12:57)
[2023-08-28 13:13] LABS: NT Pro B Type Natriuretic Pept < 20 pg/mL (19.9-100)
[2023-08-28 13:41] LABS: Influenza A QL RT-PCR Negative (Negative); Influenza B QL RT-PCR Negative (Negative); RSV RNA, RT-PCR Negative (Negative); SARS-CoV-2 RNA PCR Negative (Negative)
[2023-08-28 14:20] VITALS: BP 135/81; PULSE 63; RESP 12; O2SAT 96
--- NOTE | 2023-08-28 14:55 | ECG_ITS ---
Measurements Intervals [place] Rate: 54 P: 36 OR: 156 QRS: 24 QRSD: 86 T: 63 QT: 404 QTc: 383 Interpretive Statements SINUS BRADYCARDIA BORDERLINE ECG COMPARED TO ECG 08/28/2023 12:00:46 NO SIGNIFICANT CHANGES Electronically Signed On 08-28-2023 17:06:27 HOLLOCK MAKER by Earl Eckert D.O.
[2023-08-28 15:54] LABS: Troponin I < 0.012 ng/mL (0.000-0.034)
[2023-08-28 16:47] VITALS: BP 129/73; PULSE 60; RESP 18; O2SAT 97
== END 2023-08-28 16:48 | disposition home or self-care (01) ==
PROVIDERS: Emergency Medicine; Emergency Provider Emergency Medicine; PCP Emergency Medicine
DX: R07.89 Other chest pain (principal); R42 Dizziness and giddiness; Z20.822 Contact with and (suspected) exposure to COVID-19; I10 Essential (primary) hypertension; Z98.1 Arthrodesis status; R00.1 Bradycardia, unspecified
CPT/HCPCS: 36415; 71046; 80053; 83690; 83880; 84484; 85025; 85610; 85730; 87637; 93005; 96360; 99284; A9270; J7030

== ENCOUNTER 2023-09-15 10:05 | Outpatient (CLI) | payer BC, SELFPAY ==
--- NOTE | ~2023-09-15 | XR_ITS ---
AP and lateral views of the right hip Clinical history: Pain Findings: No acute fracture or dislocation is seen. Osseous alignment is anatomic. The right hip join t spaces preserved. Soft tissues are unremarkable. Impression: No significant abnormality is seen. Reviewed, dictated and finalized at location . Impression: No significant abnormality is seen.
--- NOTE | ~2023-09-15 | MR_ITS ---
MRI of the lumbar spine Clinical History: Radiculopathy Technique: Axial T2-weighted images, and sagittal T1-weighted, T2-weighted, and T2 fat-sat images wer e acquired. Findings: There is no fracture or subluxation of the lumbar spine. Vertebral bodies maintain normal h eight and alignment. No bone marrow signal abnormality seen. No significant disc bulge or herniation seen at any lumbar level. There are moderate facet joint dege nerative changes throughout the lumbar spine, worsening at the lower levels. No spinal canal stenosis seen. There is mild bilateral neural foraminal narrowing at L1-L2, L2-L3, L3-L4, L4-L5. Paravertebral soft tissues are unremarkable. Impression: Mild degenerative spondylosis, as above. Reviewed, dictated and finalized at location . Impression: Mild degenerative spondylosis, as above.
--- NOTE | ~2023-09-15 | NM_ITS ---
EXAMINATION: NM manjinder stress w perfusion DATE: 09/15/2023 11:53 INDICATION: Chest pain TECHNIQUE: Rest images were obtained following intravenous administration of 10.0 mCi Tc99m tetrofosm in (Myoview). The patient was infused intravenously with Lexiscan (Regadenoson). Then, 31.2 mCi Tc99m tetrofosmin (Myoview) was administered intravenously, and stress images were obtained initially in t he supine position with repeat post stress imaging obtained in the prone position. Data was reconstru cted into short axis and horizontal and vertical long axis SPECT images. Gated SPECT images were also obtained. COMPARISON: None. FINDINGS: Likely diaphragmatic attenuation artifact along the inferior, inferoseptal and inferolatera l segments on the imaging performed in the supine position which normalized on the post stress images obtained in the prone position. There is no definite reversible or fixed perfusion abnormality to paulino ggest ischemia or infarction. There is normal left ventricular chamber size, wall motion and ejectio n fraction. Left ventricular ejection fraction measures 66%. IMPRESSION: 1. Normal myocardial perfusion during stress. 2. Left ventricular ejection fraction measuring 66%. Reviewed, dictated and finalized at location A.
--- NOTE | 2023-09-15 10:23 | EST_ITS ---
Patient Info Name: Tyshawn Syed Age: 68 years : 1955 Gender: Male Ht: 69 in Wt: 255 lbs BSA: 2.42 m2 HR: 52 bpm BP: 124 / 82 mmHg Exam Date: 09/15/2023 11:07 AM Exam Location: Echo Lab Patient Status: Outpatient Admit Date: 09/15/2023 Staff Ordering Physician: Saul Somers MD Attending Provider: Saul Somers MD Exercise Technologist: Maya Wynn [facility] Exercise Physician: Earl Eckert DO Exam Type: CA stress manjinder w NM Study Info A regadenoson stress test was performed. Summary 1. 1. Negative lexiscan stress test for ischemic ST changes by ECG criteria. 2. 2. Stable hemodynamics throughout the test. 3. 3. Nuclear scan to follow and will be reported separately. Please correlate with it. 4. 4. Patient informed of the above results. Protocol: Lexiscan Stress ECG Details Stage: REST Duration (min): 1 min : 46 sec HR (bpm): 53 SBP (mmHg): 124 DBP (mmHg): 82 Stage: REST Duration (min): 4 min : 25 sec HR (bpm): 59 SBP (mmHg): 124 DBP (mmHg): 82 Stage: STAGE 1 Duration (min): 0 min : 59 sec HR (bpm): 79 SBP (mmHg): 128 DBP (mmHg): 82 Stage: RECOVERY Duration (min): 1 min : 0 sec HR (bpm): 97 SBP (mmHg): 128 DBP (mmHg): 82 Stage: RECOVERY Duration (min): 2 min : 0 sec HR (bpm): 75 SBP (mmHg): 128 DBP (mmHg): 82 Stage: RECOVERY Duration (min): 3 min : 0 sec HR (bpm): 68 SBP (mmHg): 120 DBP (mmHg): 80 Stage: RECOVERY Duration (min): 3 min : 8 sec HR (bpm): 67 SBP (mmHg): 120 DBP (mmHg): 80 Rest HR: 59 bpm Peak HR: 97 bpm Rest Sys BP: 124 mmHg Peak Sys BP: 128 mmHg Max Pred HR: 154 bpm % Max Pred HR: 63 % Target HR: 131 bpm Max RPP: 12,416 bpm*mmHg Termination Reason: Completed protocol Cardiac Symptoms: None Total Time: 1 min : 0 sec Rest Mane BP: 82 mmHg Peak Mane BP: 82 mmHg Total Dose: 0.4 mg Resting ECG Sinus bradycardia. Stress ECG No ST changes. Arrhythmias None. Report Signatures
== END 2023-09-15 10:06 | disposition home or self-care (01) ==
PROVIDERS: PCP Emergency Medicine; Visit Provider Emergency Medicine
DX: M47.896 Other spondylosis, lumbar region (principal); M25.551 Pain in right hip; R07.9 Chest pain, unspecified
CPT/HCPCS: 72148; 73502; 78452; 93017; A9502; J2785

== ENCOUNTER 2023-09-29 06:35 | Outpatient (CLI) | payer BC, SELFPAY ==
--- NOTE | ~2023-09-29 | MR_ITS ---
MRI of the right hip Clinical history: Right hip pain Technique: Coronal T1-weighted, T2-weighted, and proton-density fat-sat images, and axial T1-weighted and proton-density fat-sat images were acquired through the pelvis. Coronal T2-weighted images and c oronal, axial, and sagittal proton-density fat-sat images were acquired through the right hip. Findings: There is no fracture or osteonecrosis of either hip. Bone marrow signals in the proximal fe hess and visualized pelvic bones are unremarkable. Bilateral hip joints and bilateral SI joints are i ntact. No joint effusion seen. No definite right acetabular labral tear identified. Visualized musculature about the pelvis and right hip is unremarkable. No muscle atrophy or edema ainsley ntified. The tendons are intact. No soft tissue mass or fluid collection. No evidence of bursitis. IMPRESSION: No significant abnormality seen. Reviewed, dictated and finalized at [facility].
--- NOTE | ~2023-09-29 | MR_ITS ---
EXAMINATION: MR pelvis wo con DATE: 09/29/2023 08:00 INDICATION: Right hip pain TECHNIQUE: Magnetic resonance imaging (MRI) of the pelvis was performed without intravenous contrast. Fullfield sequences of the pelvis included axial and coronal T2-weighted SS FSE, coronal 2D FIESTA, axial T1-weighted FSPGR, axial dual-echo T1-weighted FSPGR and axial T1 weighted LAVA. Small field o f view sequences included axial, sagittal and coronal T2-weighted FSE centered on the uterus and adne xa. COMPARISON: CT abdomen and pelvis dated 01/02/2020 FINDINGS: Prostatomegaly measuring 5.8 x 5.3 x 6.5 cm. Bladder is normal. There are multiple diverticula along the visualized sigmoid colon without adjacent from trace stranding to suggest diverticulitis. No dila nick bowel to visualize pelvis to suggest obstruction. Partially visualized at least 2.9 cm cyst at th e lower pole of the left kidney. Small bilateral fat-containing inguinal hernias, left greater than r ight. No pathologically enlarged pelvic or inguinal lymphadenopathy. Normal bone marrow signal throug hout no reactive edema, fracture, osteonecrosis or other pathologic marrow replacing process. Physiol ogic amount fluid at the bilateral hips. IMPRESSION: 1. Prostatomegaly. 2. Small bilateral fat-containing inguinal hernias, left greater than right. 3. Diverticulosis. Reviewed, dictated and finalized at location A.
== END 2023-09-29 06:36 | disposition home or self-care (01) ==
PROVIDERS: PCP Emergency Medicine; Visit Provider Emergency Medicine
DX: N40.0 Benign prostatic hyperplasia without lower urinary tract symptoms (principal); K40.20 Bilateral inguinal hernia, without obstruction or gangrene, not specified as recurrent; K57.30 Diverticulosis of large intestine without perforation or abscess without bleeding; M25.551 Pain in right hip
CPT/HCPCS: 72195; 73721

== ENCOUNTER 2024-04-10 10:01 | Outpatient (CLI) | payer MEDICARE, SELFPAY ==
[2024-04-10 10:45] LABS: Alanine Aminotransferase 39 U/L (6-50); Albumin Level 4.6 g/dL (3.5-5.1); Alkaline Phosphatase 63 U/L (38-126); Anion Gap 7 mmol/L (4-12); Aspartate Amino Transferase 35 U/L (17-59); Bilirubin,Total 0.6 mg/dL (0.2-1.3); Blood Urea Nitrogen 12 mg/dL (9-20); Calcium 9.5 mg/dL (8.4-10.2); Carbon Dioxide 27 mmol/L (22-30); Chloride 105 mmol/L (98-107); Cholesterol 166 mg/dL (0-200); Estimated Glomerular Filt Rate > 60; Glucose 101 mg/dL (65-110); HDL Direct 36 mg/dL; Potassium 4.1 mmol/L (3.4-5.0); Sodium 139 mmol/L (137-145); Triglycerides 145 mg/dL (<150)
[2024-04-10 10:56] LABS: LDL Cholesterol Direct 95 mg/dL
[2024-04-10 11:03] LABS: Vitamin D 25 Hydroxy 38.9 ng/mL
[2024-04-10 11:13] LABS: Prostate Specific Antigen 2.2 ng/mL (< OR = 4.0)
== END 2024-04-10 10:02 | disposition home or self-care (01) ==
LOC: ANHLAB 10:05
PROVIDERS: PCP Emergency Medicine; Visit Provider Emergency Medicine
DX: E55.9 Vitamin D deficiency, unspecified (principal); Z12.5 Encounter for screening for malignant neoplasm of prostate; E78.5 Hyperlipidemia, unspecified; I10 Essential (primary) hypertension
CPT/HCPCS: 36415; 80053; 80061; 82306; 84153; G0103

== ENCOUNTER 2024-11-18 08:18 | Outpatient (CLI) | payer MEDICARE, SELFPAY ==
--- OUTSIDE RECORDS SUMMARY | 2024-11-18 08:22 | XMS_ITS | Referral Summary ---
Author Organization [facility] Address [address] [place] [address] Care Team Providers Care Topper Press Operator Automatic Name Role Phone Saul Somers MD Primary Care Provide r Allergies No known active allergies Medications PROAIR HFA 90 mcg/actuation inhaler 10/26/2018 Active meloxicam (MOBIC) 7.5 mg tablet 12/15/2018 Activ e Active Problems Problem Noted Date Diagnosed Date Hand numbness 01/08/2020 Cubital tunnel syndrome on left 12/18/2019 Social History Tobacco Use Types Packs/Day Years Used Date Smoking Tobacco: Former Cigarettes 2017 Smokeless Tobacco: Never Alcohol Use Standard Drinks/Week Comments Never 0 (1 standard drink = 0.6 oz pur e alcohol) Recovering Alcoholic AUDIT-C Answer Date Recorded Q1: How often do you have a drink containing alc ohol? 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
--- OUTSIDE RECORDS SUMMARY | 2024-11-18 08:22 | XMS_ITS | Clinical Summary ---
Author Organization [facility] Address [address] [place] [address] Care Team Providers Care Anchor Tack Puller Name Role Phone Saul Somers MD Primary Care Provide r Allergies No known active allergies Medications PROAIR HFA 90 mcg/actuation inhaler 10/26/2018 Active meloxicam (MOBIC) 7.5 mg tablet 12/15/2018 Activ e Active Problems Problem Noted Date Diagnosed Date Hand numbness 01/08/2020 Cubital tunnel syndrome on left 12/18/2019 Surgical History Surgery Date Site/Laterality Comments CERVICAL SPINE SURGERY APPENDECTOMY SPINAL FUSION cervical CARPAL TUNNEL RELEASE Bilateral TONSILLECTOMY Family History Medical History Relation Name Comments Arthritis Father Cancer Father Gout Father Arthritis Mother Cancer Mother Relation Name Status Comments Father Mother Social History Tobacco Use Types Packs/Day Years Used Date Smoking Tobacco: Former Cigarettes 2017 Smokeless Tobacco: Never Alcohol Use Standard Drinks/Week Comments Never 0 (1 standard drink = 0.6 oz pur e alcohol) Recovering Alcoholic AUDIT-C Answer Date Recorded Q1: How often do you have a drink containing alc ohol? 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
--- OUTSIDE RECORDS SUMMARY | 2024-11-18 08:22 | XMS_ITS | Clinical Summary ---
Author Organization [facility] Address [address] [place] [address] Care Team Providers Care Curb Setter Name Role Phone Unavailable Primary Care Provider Unavailabl e Source Comments [facility],non-owned Affiliates and Associated Physician Practices is amultiple site organization consisting of ambulatory clinics and hospital sitesin [place], [place], [place] and [place]. This disclosure is being madepursuant to the Care Everywhere program and may not contain all informatio navailable regarding this patient. 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 Gender Identity Not on file Sexual Orientation Not on file Plan of Treatment Health Maintenance Due Date Last Done Comments COLOGUARD (AGES 45-75) - COL ON CA SCREENING 1955 COLON MONITORING 1955 COLONOSCOPY - COLON CA SCREENING 1955 CT COLONOGRAPHY - COLON CA SCREENING 1955 Colorectal Cancer Screening 1955 FIT - COLON CA SCREENING 1955 FLEX SIG - COLON CA SCREENING 1955 LIPID TESTING 1955 HEPATITIS C SCREENING 03/19/1975 DTAP/TDAP/TD VACCINES (1 - Tdap) 1976 PNEUMOCOCCAL VACCINE 50+ (1 of 1 - PCV) 2007 ZOSTER VACCINE (1 of 2) 2007 COVID-19 VACCINE ( - 2023-2 5 season) 2024 DEPRESSION SCREENING 06/28/2024 INFLUENZA VACCINE (Season Ended) 2025 Respiratory Syncytial Virus (RSV) Vaccine Pt: or over 60 yrs (1 - 1-dose 75+ series) 2032 HEPATITIS B VACCINE Aged Out No longe r eligible based on patient's age to complete this topic HIB VACCINE Aged Out No longer eligi ble based on patient's age to complete this topic HPV VACCINE Aged Out No longer eligi ble based on patient's age to complete this topic MENINGOCOCCAL (Group B) VACC INE SHARED DECISION-MAKING Aged Out No longer eligibl e based on patient's age to complete this topic MENINGOCOCCAL GROUPS A/C/Y/W VACCINE Aged Out No longer eligible b ased on patient's age to complete this topic
--- OUTSIDE RECORDS SUMMARY | 2024-11-18 08:22 | XMS_ITS | Clinical Summary ---
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 Gender Identity Not on file Sexual Orientation Not on file Plan of Treatment Health Maintenance Due Date Last Done Comments Hepatitis C Virus (HCV) Screening 1955 TdaP Immunization 1955 Colonoscopy 2002 Colorectal Cancer Screening 2002 Cologuard 2007 Immunochemical Fecal Occult Blood 2007 Pneumococcal Immunization (5 0+ years) (1 of 1 - PCV) 2007 Zoster Immunization (1 of 2) 2007 PSA Discussion 2012 Influenza Immunization (#1) 2024 SARS-COV-2 Immunization ( - season) 2024 Respiratory Syncytial Virus (RSV) Immunization (Adult) (1 - 1-dose 75+ series) 2032 Hepatitis B Immunization Aged Out No longer eligible based on patient's age to complete this topic Meningococcal Immunization (ACWY) Aged Out No longer eligible based on patient's age to complete this topic Rotavirus Immunization Aged Out No lo nger eligible based on patient's age to complete this topic
[2024-11-18 08:41] LABS: Basophils Absolute Auto 0.1 K/mm3 (0.0-0.1); Basophils Percent Auto 0.8 % (0.2-1.2); Eosinophils Absolute Auto 0.2 K/mm3 (0-0.3); Eosinophils Percent Auto 2.5 % (0-4.4); Hematocrit 41.4 % (42.0-52.0); Hemoglobin 14.5 g/dL (14.0-18.0); Immature Granulocyte Absolute 0.02 K/mm3 (0.00-0.031); Immature Granulocyte Percent A 0.3 % (0-0.5); Lymphocytes Absolute Auto 1.73 K/mm3 (0.9-3.2); Lymphocytes Percent Auto 23.6 % (18.3-44.2); Mean Corpuscular Hemoglobin 30.9 pg (26-34); Mean Corpuscular Volume 88.3 fl (80-100); Mean Platelet Volume 8.9 fl (7.4-10.4); Monocytes Absolute Auto 0.5 K/mm3 (0.1-0.6); Monocytes Percent Auto 6.6 % (2.6-8.5); Neutrophils Absolute Auto 4.9 K/mm3 (1.3-6.7); Neutrophils Percent Auto 66.2 % (45.5-73.1); Platelet Count Result 191 k/mm3 (150-375); Red Blood Count 4.69 M/mm3 (4.6-6.20); Red Cell Distribution Width 13.4 % (11.5-14.5); White Blood Count 7.3 K/mm3 (4.5-10.0)
[2024-11-18 08:52] LABS: Alanine Aminotransferase 54 U/L (6-50); Albumin Level 4.5 g/dL (3.5-5.1); Alkaline Phosphatase 60 U/L (38-126); Anion Gap 8 mmol/L (4-12); Aspartate Amino Transferase 45 U/L (17-59); Bilirubin,Total 0.7 mg/dL (0.2-1.3); Blood Urea Nitrogen 17 mg/dL (9-20); Calcium 9.1 mg/dL (8.4-10.2); Carbon Dioxide 25 mmol/L (22-30); Chloride 108 mmol/L (98-107); Cholesterol 156 mg/dL (0-200); Estimated Glomerular Filt Rate > 60; Glucose 115 mg/dL (65-110); HDL Direct 33 mg/dL; Sodium 141 mmol/L (137-145); Triglycerides 109 mg/dL (<150)
[2024-11-18 09:04] LABS: LDL Cholesterol Direct 99 mg/dL
[2024-11-18 09:22] LABS: Prostate Specific Antigen 1.9 ng/mL (< OR = 4.0)
[2024-11-18 10:06] LABS: Vitamin D 25 Hydroxy 37.1 ng/mL
== END 2024-11-18 08:19 | disposition home or self-care (01) ==
LOC: ANHLAB 08:20
PROVIDERS: PCP Emergency Medicine; Visit Provider Emergency Medicine
DX: E78.5 Hyperlipidemia, unspecified (principal); I10 Essential (primary) hypertension; E55.9 Vitamin D deficiency, unspecified; Z12.5 Encounter for screening for malignant neoplasm of prostate
CPT/HCPCS: 36415; 80053; 80061; 82306; 84153; 85025; G0103